=== PATIENT | male | born 2000 | race Caucasian/White ===

== ENCOUNTER 2023-01-27 10:43 | Emergency (ER) | payer BC ==
[2023-01-27 11:58] LABS: SARS-CoV-2 Antigen Rapid Res Negative (Negative)
[2023-01-27] MEDS ORDERED: NA CHLORIDE 0.9% 1,000 ML ONE (14:29)
[2023-01-27] MEDS ORDERED: FAMOTIDINE 20 MG/2 ML VIAL IV ONE (14:29)
[2023-01-27 14:48] LABS: Absolute Lymphocytes (CBC) 1.2 K/uL (0.7-4.9); Hematocrit 35.5 % (39.6-49.0); Lymphocytes % 11.7 % (15.3-44.8); MPV 9.8 fL (7.6-11.3); Platelets 190 thou/uL (152-406); RBC Red Blood Cell Count 4.18 M/uL (4.33-5.43)
[2023-01-27 15:10] LABS: Albumin 3.4 g/dL (3.4-5.0); Bilirubin Total 0.8 mg/dL (0.2-1.0); Potassium 3.7 mEq/L (3.5-5.1); Protein, Total 6.9 g/dL (6.4-8.2)
--- NOTE | 2023-01-27 15:48 | ER ---
Nurse's Notes [facility] Name: Sedrick Arellano Age: 22 yrs Sex: Male : 2000 Arrival Date: 01/27/2023 Time: 10:43 Bed 5 Private MD: Diagnosis: Rash and other nonspecific skin eruption;Other malaise and fatigue Presentation: 01/27 10:54 Chief complaint: Subjective fever, chest tightness, headache, and diffuse rash x 3 hb days. Coronavirus screen: At this time, the client does not indicate any symptoms associated with coronavirus-19. Ebola Screen: No symptoms or risks identified at this time. Initial Sepsis Screen: Does the patient meet any 2 criteria? No. Patient's initial sepsis screen is negative. Does the patient have a suspected source of infection? No. Patient's initial sepsis screen is negative. Risk Assessment: Do you want to hurt yourself or someone else? Patient reports no desire to harm self or others. Onset of symptoms was January 24, 2023. 10:54 Method Of Arrival: Ambulatory hb 10:54 Acuity: MARLENE 4 hb Historical: - Allergies: 10:58 No Known Allergies; hb - Home Meds: 10:58 None [Active]; hb - PMHx: 10:58 None; hb - PSHx: 10:58 None; hb - Immunization history:: Adult Immunizations up to date. - Social history:: Smoking status: Patient denies any tobacco usage or history of. Screenin:00 [facility] ED Fall Risk Assessment (Adult) History of falling in the last 3 months, ko1 including since admission No falls in past 3 months (0 pts) Confusion or Disorientation No (0 pts) Intoxicated or Sedated No (0 pts) Impaired Gait No (0 pts) Mobility Assist Device Used No (0 pt) Altered Elimination Yes (1 pt) Score/Fall Risk Level 0 - 2 = Low Risk Oriented to surroundings, Maintained a safe environment, Educated pt \T\ family on fall prevention, incl call for assistance when getting out of bed, Assessed \T\ reinforced patient's understanding of fall precautions, Provided non-skid footwear, Hourly rounding (assess needs \T\ fall precautionary measures) done, Used ambulatory aids as needed (educated on \T\ assisted with), Used gait belt as appropriate. Abuse screen: Denies threats or abuse. Denies injuries from another. Nutritional screening: No deficits noted. Tuberculosis screening: No symptoms or risk factors identified. Assessment: 11:00 General: Appears in no apparent distress. uncomfortable. Pain: Pain does not radiate. ko1 Pain began gradually. Neuro: No deficits noted. Cardiovascular: Reports chest tightness. Respiratory: No deficits noted. GI: No deficits noted. : No deficits noted. EENT: No deficits noted. Derm: No deficits noted. Musculoskeletal: Reports weakness in generalized. Vital Signs: 10:54 BP 113 / 78; Pulse 89; Resp 16; Temp 98.5(O); Pulse Ox 100% on R/A; Weight 86.18 kg; hb Height 6 ft. 0 in. ; Pain 3/10; 11:39 BP 104 / 74; Pulse 82; Resp 18; Pulse Ox 99% ; ko1 12:24 BP 111 / 80; Pulse 76; Pulse Ox 99% on R/A; ap3 13:47 BP 104 / 70; Pulse 78; Resp 16; Pulse Ox 100% on R/A; ko1 15:40 BP 102 / 67; Pulse 90; Temp 99.7; ap3 16:02 BP 108 / 72; Pulse 84; Resp 16; Pulse Ox 99% ; ko1 10:54 Body Mass Index 25.77 (86.18 kg, 182.88 cm) hb 10:54 Pain Scale: Adult hb ED Course: 10:47 Patient arrived in ED. ts1 10:47 Debra Islas FNP-C is [facility]. snw 10:47 Cirilo Lopez MD is Attending Physician. snw 10:52 Kelly Mckenna, BECKY is Primary Nurse. ko1 10:56 Triage completed. hb 10:58 Arm band placed on. hb 11:00 Patient has correct armband on for positive identification. Bed in low position. Call ko1 light in reach. Provided Education on: NA. Client placed on continuous cardiac and pulse oximetry monitoring. NIBP monitoring applied. hall monitor on. Door closed. Noise minimized. Warm blanket given. 11:00 Patient maintains SpO2 saturation greater than 95% on room air. ko1 11:18 SARS RAPID Sent. ko1 11:18 Flu Sent. ko1 11:18 Strep Sent. ko1 13:47 No provider procedures requiring assistance completed. Patient did not have IV access ko1 during this emergency room visit. 14:24 Initial lab(s) drawn, by me, sent to lab. First set of blood cultures drawn by me. ap3 Inserted saline lock: 20 gauge in right antecubital area, using aseptic technique. Blood collected. 14:29 CMP Sent. ap3 14:29 CBC with Diff Sent. ap3 14:29 [place] Screen Profile Sent. ap3 14:29 Blood Culture Adult (2) Sent. ap3 14:34 Second set of blood cultures drawn by me. ap3 14:52 Chest Pa And Lat (2 Views) XRAY In Process Unspecified. EDMS Administered Medications: 14:29 Drug: NS 0.9% IV 1000 ml Route: IV; Rate: 1 bolus; Site: right antecubital; ap3 14:29 Drug: Famotidine IVP 20 mg Route: IVP; Site: right antecubital; ap3 15:52 Drug: Doxycycline PO 100 mg Route: PO; ko1 Medication: 13:47 VIS not applicable for this client. ko1 Outcome: 15:47 Discharge ordered by . myles 16:02 Discharged to home ambulatory. ko1 16:02 Condition: stable 16:02 Discharge instructions given to patient, Instructed on discharge instructions, follow up and referral plans. medication usage, Demonstrated understanding of instructions, follow-up care, medications, Prescriptions given X 2. 16:03 Patient left the ED. ko1 Signatures: Dispatcher [employer] EDMS Debra Islas, KELLI-C [employer]ER-[employer]nw Marilia Zamora RN RN Karina Whitfield RN RN ap3 Kelly Mckenna RN RN ko1 Maria Esther Sauceda PAS PAS ts1
--- NOTE | 2023-01-27 15:48 | EDPHYS ---
Physician Documentation [facility] Name: Sedrick Arellano Age: 22 yrs Sex: Male : 2000 Arrival Date: 01/27/2023 Time: 10:43 Bed 5 Private MD: ED Physician Cirilo Lopez HPI: 01/27 11:00 This 22 yrs old Male presents to ER via Ambulatory with complaints of Fever, General snw Weakness, Chest Tightness. 11:00 The patient reports fever, not measured (subjective). Onset: The symptoms/episode snw began/occurred suddenly, 3 day(s) ago. Severity of symptoms: At their worst the symptoms were moderate. The patient has not experienced similar symptoms in the past. The patient has not recently seen a physician. Historical: - Allergies: 10:58 No Known Allergies; hb - Home Meds: 10:58 None [Active]; hb - PMHx: 10:58 None; hb - PSHx: 10:58 None; hb - Immunization history:: Adult Immunizations up to date. - Social history:: Smoking status: Patient denies any tobacco usage or history of. ROS: 10:57 Eyes: Negative for injury, pain, redness, and discharge, ENT: Negative for injury, snw pain, and discharge, Neck: Negative for injury, pain, and swelling. 10:57 Respiratory: Negative for shortness of breath, cough, wheezing, and pleuritic chest pain, Abdomen/GI: Negative for abdominal pain, nausea, vomiting, diarrhea, and constipation, Back: Negative for injury and pain, : Negative for injury, bleeding, discharge, and swelling, MS/Extremity: Negative for injury and deformity, generalized soreness Skin: Negative for injury, rash, and discoloration, Neuro: Negative for headache, weakness, numbness, tingling, and seizure, Psych: Negative for depression, anxiety, suicide ideation, homicidal ideation, and hallucinations. 10:57 Constitutional: Positive for fever, malaise. 10:57 Cardiovascular: Positive for tightness. Exam: 10:56 Constitutional: This is a well developed, well nourished patient who is awake, alert, snw and in no acute distress. Head/Face: Normocephalic, atraumatic. Eyes: Pupils equal round and reactive to light, extra-ocular motions intact. Lids and lashes normal. Conjunctiva and sclera are non-icteric and not injected. Cornea within normal limits. Periorbital areas with no swelling, redness, or edema. Neck: Trachea midline, no thyromegaly or masses palpated, and no cervical lymphadenopathy. Supple, full range of motion without nuchal rigidity, or vertebral point tenderness. No Meningismus. Chest/axilla: Normal chest wall appearance and motion. Nontender with no deformity. No lesions are appreciated. 10:56 Respiratory: Lungs have equal breath sounds bilaterally, clear to auscultation and percussion. No rales, rhonchi or wheezes noted. No increased work of breathing, no retractions or nasal flaring. Abdomen/GI: Soft, non-tender, with normal bowel sounds. No distension or tympany. No guarding or rebound. No evidence of tenderness throughout. Back: No spinal tenderness. No costovertebral tenderness. Full range of motion. Skin: Warm, dry with normal turgor. Normal color, no lesions, and no evidence of cellulitis. + generalized maculopapular rash MS/ Extremity: Pulses equal, no cyanosis. Neurovascular intact. Full, normal range of motion. Neuro: Awake and alert, GCS 15, oriented to person, place, time, and situation. Cranial nerves II-XII grossly intact. Motor strength 5/5 in all extremities. Sensory grossly intact. Cerebellar exam normal. Normal gait. Psych: Awake, alert, with orientation to person, place and time. Behavior, mood, and affect are within normal limits. 10:56 ENT: External ear(s): are unremarkable, Ear canal(s): are normal, TM's: dullness, bilaterally, Nose: is normal, Mouth: is normal, Posterior pharynx: erythema, that is mild, Voice: is normal. 10:56 Cardiovascular: Rate: tachycardic. Vital Signs: 10:54 BP 113 / 78; Pulse 89; Resp 16; Temp 98.5(O); Pulse Ox 100% on R/A; Weight 86.18 kg; hb Height 6 ft. 0 in. ; Pain 3/10; 11:39 BP 104 / 74; Pulse 82; Resp 18; Pulse Ox 99% ; ko1 12:24 BP 111 / 80; Pulse 76; Pulse Ox 99% on R/A; ap3 13:47 BP 104 / 70; Pulse 78; Resp 16; Pulse Ox 100% on R/A; ko1 15:40 BP 102 / 67; Pulse 90; Temp 99.7; ap3 16:02 BP 108 / 72; Pulse 84; Resp 16; Pulse Ox 99% ; ko1 10:54 Body Mass Index 25.77 (86.18 kg, 182.88 cm) hb 10:54 Pain Scale: Adult hb MDM: 10:53 Patient medically screened. snw 15:46 Differential diagnosis: viral Infection, bacterial infection. Data reviewed: vital snw signs, nurses notes, lab test result(s). I considered the following discharge prescriptions or medication management in the emergency department Medications were administered in the Emergency Department. See MAR. Counseling: I had a detailed discussion with the patient and/or guardian regarding the historical points, exam findings, and any diagnostic results supporting the discharge/admit diagnosis, lab results, the need for outpatient follow up, to return to the emergency department if symptoms worsen or persist or if there are any questions or concerns that arise at home. Special discussion: Based on the history and exam findings, there is no indication for further emergent testing or inpatient evaluation. I discussed with the patient/guardian the need to see the primary care provider for further evaluation of the symptoms. 01/27 10:56 Order name: Strep snw 01/27 10:56 Order name: Flu; Complete Time: 11:59 snw 01/27 10:56 Order name: SARS RAPID; Complete Time: 11:59 snw 01/27 11:59 Order name: Throat Culture EDMS 01/27 14:11 Order name: [place] Screen Profile; Complete Time: 15:44 snw 01/27 14:11 Order name: CBC with Diff; Complete Time: 14:54 snw 01/27 14:11 Order name: CMP; Complete Time: 15:11 snw 01/27 14:11 Order name: Blood Culture Adult (2) snw 01/27 14:11 Order name: Chest Pa And Lat (2 Views) XRAY snw Administered Medications: 14:29 Drug: NS 0.9% IV 1000 ml Route: IV; Rate: 1 bolus; Site: right antecubital; ap3 14:29 Drug: Famotidine IVP 20 mg Route: IVP; Site: right antecubital; ap3 15:52 Drug: Doxycycline PO 100 mg Route: PO; ko1 Disposition: 16:33 I reviewed the patient's care provided by the Advanced Practice Provider and agree with alyssa the diagnosis and treatment plan. Disposition Summary: 01/27/23 15:47 Discharge Ordered Location: Home snw Condition: Stable snw Diagnosis - Rash and other nonspecific skin eruption snw - Other malaise and fatigue snw Followup: snw - With: Emergency Department - When: As needed - Reason: Worsening of condition Followup: snw - With: Private Physician - When: 2 - 3 days - Reason: Recheck today's complaints, Continuance of care, Re-evaluation by your physician Discharge Instructions: - Discharge Summary Sheet snw - Rash, Adult snw - Fatigue snw Forms: - Work release form snw - Medication Reconciliation Form snw - Thank You Letter snw - Antibiotic Education snw - Prescription Opioid Use snw - Patient Portal Instructions snw - Leadership Thank You Letter snw Prescriptions: - Zyrtec 10 mg Oral Tablet - take 1 tablet by ORAL route once daily As needed; 20 tablet; Refills: 0, snw Product Selection Permitted - Doxycycline Hyclate 100 mg Oral Tablet - take 1 tablet by ORAL route every 12 hours; 20 tablet; Refills: 0, Product snw Selection Permitted - Pepcid 20 mg Oral Tablet - take 1 tablet by ORAL route once daily; 20 tablet; Refills: 0, Product snw Selection Permitted Signatures: Dispatcher [employer] EDDebra Delacruz FNP-C [employer] COMPLIANCE DIRECTOR-Csnw Marilia Zamora, RN Karina Redmond RN RN ap3 Cirilo Lopez MD MD [id number] Kelly Mckenna RN RN ko1
[2023-01-27] MEDS ORDERED: DOXYCYCLINE 100 MG CAP PO ONE (16:01)
[2023-01-27 16:34] VITALS: TEMP 99.7
[2023-01-27 16:36] VITALS: BP 108/72; O2SAT 99
--- NOTE | 2023-01-27 16:42 | RAD REPORT ---
EXAM DESCRIPTION: RAD - Chest Pa And Lat (2 Views) - 01/27/2023 2:51 pm CLINICAL HISTORY: CHEST PAIN COMPARISON: No comparisons TECHNIQUE: PA and lateral views of the chest were obtained. FINDINGS: The lungs are clear. Heart size is normal and central vasculature is within normal limits. No pleural effusion or pneumothorax seen. No acute bony finding noted. IMPRESSION: No acute cardiopulmonary process.
== END 2023-01-27 16:03 | disposition home or self-care (01) ==
LOC: ER 10:43
DX: R53.81 Other malaise (principal); R53.83 Other fatigue; R07.89 Other chest pain; R21 Rash and other nonspecific skin eruption; Z20.822 Contact with and (suspected) exposure to COVID-19
CPT/HCPCS: 87040 ×2; 87070; 85025; 36415; 86308; 87081; 80053; 87804 ×2; 71046; 96374; 99285; 87811; J7030